=== PATIENT | male | born 1985 | race Caucasian/White ===

== ENCOUNTER 2018-10-07 19:34 | Emergency (ER) | payer SELFPAY ==
[2018-10-07 19:40] VITALS: BP 139/76; PULSE 82; RESP 16; TEMP 36.3; O2SAT 98
--- NOTE | 2018-10-07 20:26 | ED.GENADUL_ITS ---
Discharge Plan Disposition Patient Disposition: HOME Condition: Improving Discharge Details Chief Complaint: Laceration Clinical Impression: Laceration of finger of left hand Primary Care Provider: None,None ED Provider: Jason Lema Home Meds and New Rx's Prescriptions: No Action No Known Home Meds RF: 0 Discharge Instructions Instructions: Finger Laceration (ED) Additional Instructions: Please watch for any signs of infection and return immediately if these occur. Otherwise keep wound clean and dry, keep initial dressing on for the first 24-48 hours, and then you may use mild soap and water to clean wound. You may use [id number] pain meds as needed for discomfort. Referrals: [facility] Emergency Dept. [Outside] (Return to emergency department in 10-12 days for suture removal) Medical Decision Making Patient presenting to the emergency department for chief complaint of left ring finger laceration patient states that he was attempting to change the brakes in his car when his hand slipped and was smashed against a part of the car. Patient suffered laceration to the left ring finger. Patient denies any other injury or trauma. Patient does state mild numbness around the wound itself but patient has full movement and no tendon deficiency and normal cap refill along with two-point discrimination of the finger. Patient gave consent for wound closure. Please see in procedure note for wound closure. Return precautions discussed. After discussion of diagnosis and plan of care patient has no further needs, questions, or concerns and states clear understanding to return to the emergency department for any worsening symptoms. Tetanus status was unable to be verified so patient was in agreement with receiving tetanus at today's visit. Tdap ordered. HPI General Mode of arrival: ambulatory . Date/Time Provider Initiated Documentation: 10/07/18 19:36 . Limitations to Documentation: no limitations . Information obtained by: patient and RN notes reviewed . History of Present Illness 33 year old M presents to the emergency department with the chief complaint of Left index finger lacerate, described as mild, with intensity rated at 5. Quality is described as sharp, and is localized to the left and upper extremity. Patient started experiencing this hour(s) (2) and it has been constant. Patient notes no other symptoms.. Patient did receive the following treatments prior to arrival, none Related Data Home Medications Medication Instructions Recorded Confirmed Unknown [No Known Home Meds] 09/27/14 10/07/18 Allergies Allergy/AdvReac Type Severity Reaction Status Date / Time Sulfa (Sulfonamide Allergy Unknown Unverified 10/07/18 19:45 Antibiotics) bees Allergy Unknown Uncoded 10/07/18 19:45 General Stated Complaint: Laceration ANITA: 4 Review of Systems Cardiovascular Denies syncope and Denies lightheadedness Musculoskeletal Denies deformity, Denies limited range of motion and Reports numbness Integumentary/Breasts Reports as per HPI Neurologic Denies syncope, Reports numbness and Denies paresthesias PFS Social History Smoking and Tabacco status: Former Tobacco Use Exam Const General: cooperative and no acute distress Orientation: alert, awake and oriented x3 Limitations: mental status not altered Resp Effort & Inspection: normal respiratory effort and able to speak in complete sentences Cardio Rate: regular rate Rhythm: regular rhythm Neuro General: alert, awake, oriented x3, gait normal, normal light touch, pain and propioception and no focal motor deficits Extrem Left upper extremity: hand Details: neuromotor exam normal, neurosensory exam normal (Two-point discrimination also normal), tendon exam normal, tenderness Location: of the 4th digit Location: at the distal phalanx and on the palmar aspect, vascular exam Details: radial pulse present and normal capillary refill, normal ROM of fingers and laceration (Left ring finger palmar aspect distal phalanx 2cm) Course Vital Signs Temperature 36.3 C L 10/07/18 19:40 Pulse 82 10/07/18 19:40 Respiratory Rate 16 10/07/18 19:40 Blood Pressure 139/76 10/07/18 19:40 Pulse Oximetry 98 10/07/18 19:40 Temperature 36.3 C L 10/07/18 19:40 Temperature Source Temporal Artery Scan 10/07/18 19:40 Pulse 82 10/07/18 19:40 Respiratory Rate 16 10/07/18 19:40 Respiratory Effort Non-Labored 10/07/18 19:47 Blood Pressure 139/76 10/07/18 19:40 Blood Pressure Position Sitting 10/07/18 19:40 Pulse Oximetry 98 10/07/18 19:40 Oxygen Delivery Method Room Air 10/07/18 19:40 Oxygen Flow Rate 0 10/07/18 19:40 Pain Level 5 10/07/18 19:40 Procedures Laceration Laceration 1: Site: hand (index finger) Side (If applicable): left Size (cm): 2 Description: linear Depth: simple, single layer Local Anesthetic: Lidocaine 2% Amount of anesthesia used (mL): 3 Pre-repair: wound explored, irrigated extensively and deep structures intact Skin layer closed with: nylon Size (cm): 4-0 Number of sutures: 4 Technique: simple, interrupted
[2018-10-07 21:14] VITALS: BP 139/76; PULSE 82; RESP 16; TEMP 36.3; O2SAT 98
== END 2018-10-07 21:15 | disposition home or self-care (01) ==
PROVIDERS: Emergency Provider Nurse Practitioner Family
DX: S61.215A Laceration without foreign body of left ring finger without damage to nail, initial encounter (principal); W26.8XXA Contact with other sharp object(s), not elsewhere classified, initial encounter
CPT/HCPCS: 12001; 90471

== ENCOUNTER 2019-02-27 08:06 | Emergency (ER) | payer SELFPAY ==
[2019-02-27 08:15] VITALS: BP 112/78; PULSE 83; RESP 16; TEMP 36.8; O2SAT 99
--- NOTE | 2019-02-27 08:26 | ED.GENADUL_ITS ---
Discharge Plan Disposition Patient Disposition: HOME Discharge Details Chief Complaint: Sorethroat Clinical Impression: Strep pharyngitis Primary Care Provider: None,None ED Provider: Sam Siegel Home Meds and New Rx's Prescriptions: New penicillin V potassium 500 mg tablet 500 mg PO BID 10 Days Qty: 20 RF: 0 Discharge Instructions Instructions: Strep Throat (ED) Additional Instructions: Take Aleve 2 pills in the morning and 2 pills at night for discomfort. You can also supplement with Tylenol 500 mg 2 tabs every 8 hours for pain. Take antibiotics for the full course. Return should you develop vomiting. Medical Decision Making This is a nontoxic-appearing 33-year-old male who presents to the emergency department with symptoms of sore throat and subjective fever. Vitals stable here. He is strep positive. No penicillin allergy. Will discharge with penicillin 500 mg twice daily x10 days. Return precautions discussed HPI General Date/Time Provider Initiated Documentation: 02/27/19 08:10 . HPI Narrative: Patient is a 33-year-old male with no significant past medical history who presents to the emergency department with 2 days of sore throat and fever. She denies any other symptoms. Patient has been supplementing Aleve and Meera- [place] for pain and fever. No abdominal pain or vomiting Related Data Home Medications Medication Instructions Recorded Confirmed penicillin V potassium 500 mg PO BID 10 Days #20 tab 02/27/19 Previous Rx's Medication Instructions Recorded penicillin V potassium 500 mg PO BID 10 Days #20 tab 02/27/19 Allergies Allergy/AdvReac Type Severity Reaction Status Date / Time Sulfa (Sulfonamide Allergy Unknown Unverified 02/27/19 08:25 Antibiotics) bees Allergy Unknown Uncoded 02/27/19 08:25 General Stated Complaint: Sorethroat ANITA: 4 Review of Systems Constitutional Denies body ache(s), Denies chills, Denies fever(s), Denies headache(s), Denies lethargy, Denies malaise, Denies night sweats and Denies weakness ENT Denies facial pain, Denies headache(s), Denies hoarseness, Denies neck mass, Denies neck pain, Denies sinus pain, Reports sore throat, Denies throat swelling and Denies tongue swelling Respiratory Denies cough Gastrointestinal Denies diarrhea, Denies nausea and Denies vomiting Musculoskeletal Denies arthralgias, Denies muscle cramps, Denies muscle weakness and Denies neck pain Integumentary/Breasts Denies rash Neurologic Denies headache(s) and Denies weakness Allergic/Immunologic Denies throat swelling and Denies tongue swelling [facility] Social History Smoking/Tobacco Use Status: Former Tobacco Use Alcohol Intake: current Alcohol Intake frequency: 3 or more drinks per day Alcohol type: beer Drug use: Occasionally Substance use type: marijuana Do you feel safe at home: Yes Do you feel safe in your relationship?: Yes Exam Const General: cooperative, healthy appearing and comfortable Orientation: alert, awake and oriented x3 HENMT Mouth: oral mucosae normal, lip normal and tongue normal Teeth and gingiva: dentition normal Throat: posterior oropharynx abnormal erythema; no edema and no exudates Neck Neck: normal visual inspection Lymphatic: lymphadenopathy Chest Chest: normal inspection of the chest Resp Effort & Inspection: normal respiratory effort and able to speak in complete sentences Skin General skin exam: no rashes or lesions noted Course Vital Signs Temperature 36.8 C 02/27/19 08:15 Pulse 83 02/27/19 08:15 Respiratory Rate 16 02/27/19 08:15 Blood Pressure 112/78 02/27/19 08:15 Pulse Oximetry 99 02/27/19 08:15 Temperature 36.8 C 02/27/19 08:15 Temperature Source Temporal Artery Scan 02/27/19 08:15 Pulse 83 02/27/19 08:15 Respiratory Rate 16 02/27/19 08:15 Respiratory Effort Non-Labored 02/27/19 08:20 Blood Pressure 112/78 02/27/19 08:15 Blood Pressure Position Sitting 02/27/19 08:15 Pulse Oximetry 99 02/27/19 08:15 Oxygen Delivery Method Room Air 02/27/19 08:15 Oxygen Flow Rate 0 02/27/19 08:15 Pain Level 10 02/27/19 08:15 Lab/Test Results Lab/Test Results: POC Strep Test-CARLOS(Rapid) Start: 02/27/19 08:13 Freq: .Rapid Strep Test Status: Active Protocol: Document 02/27/19 08:20 SGL (Rec: 02/27/19 08:20 SGL [id number]) Strep test-CARLOS(Rapid)-POC POC-Strep test-CARLOS (Rapid) Positive POC-Strep test-CARLOS (Rapid) Positive
[2019-02-27 08:41] VITALS: BP 112/78; PULSE 83; RESP 16; TEMP 36.8; O2SAT 99
== END 2019-02-27 08:43 | disposition home or self-care (01) ==
PROVIDERS: Emergency Provider Physician Assistant
DX: J02.0 Streptococcal pharyngitis (principal)
CPT/HCPCS: 87880; 99283

== ENCOUNTER 2023-04-20 18:04 | Emergency (ER) | payer SELFPAY ==
[2023-04-20 18:06] VITALS: BP 124/84; PULSE 96; RESP 16; TEMP 36.6; O2SAT 98
--- NOTE | 2023-04-20 18:30 | DI.RAD_ITS ---
Exam(s) XR KNEE RT 3V AP,LAT,RYLEE EXAM: XR KNEE RT 3V AP,LAT,RYLEE CLINICAL HISTORY: Puncture wound with nail. TECHNIQUE: 2D digital imaging was performed. COMPARISON: No exams were available for comparison FINDINGS: 3 views No evidence of fracture nor prominent joint effusion. No degenerative changes. Bone density normal. No osseous lesions. IMPRESSION: No acute osseous findings in the knee. DATA REPOSITORY: RADIATION DOSE DELIVERED:
--- NOTE | 2023-04-20 19:00 | DI.RAD_ITS ---
Exam(s) XR FEMUR RT EXAM: XR FEMUR RT CLINICAL HISTORY: Puncture wound. TECHNIQUE: 2D digital imaging was performed. COMPARISON: No exams were available for comparison FINDINGS: Two views: No evidence of femur nor hip fracture. Bone density normal. No osseous lesions. There is apparentl y a history of puncture wound. No radiopaque foreign body seen and no gas within soft tissues. IMPRESSION: No acute osseous findings in femur. DATA REPOSITORY: RADIATION DOSE DELIVERED:
[2023-04-20] MEDS: Ibuprofen 600 MG TAB PO (19:23)
--- NOTE | 2023-04-20 19:30 | ED.GENADUL_ITS ---
Discharge Plan Disposition Patient Disposition: Home Condition: Good Discharge Details Clinical Impression: Puncture wound of right thigh without foreign body Primary Care Provider: None,None ED Provider: Toya Durán Home Meds and New Rx's Prescriptions: New cephalexin 500 mg capsule 500 mg PO QID Qty: 28 0RF Rx Instructions: We recommend you take a probiotic while on antibiotics. Discharge Instructions Instructions: Puncture Wound (ED) Additional Instructions: 1. Take cephalexin 500 mg every 6 hours for 7 days. We recommend you take a probiotic while on antibiotics. 2. Wash the wound with mild soap and water or diluted hydrogen peroxide and warm tap water to encourage drainage. 3. Alternate 4 to 600 mg of ibuprofen every 3 hours with 1000 mg of acetaminophen as needed for pain. 4. You should get a phone call from the orthopedic office with an appointment for recheck of the wound. 5. Return to the emergency department for any new or worrisome symptoms such as fever, chills, increased pain, red streaking or swollen glands in your groin, or if you develop pain numbness or discoloration of the foot. Discharge Data Discharge Physician: Toya Durán Medical Decision Making This is a 38-year-old male with an intact immune system who accidentally punctured his right thigh with a needle while trying to break wooden board over his knee. He does not have any evidence of compartment syndrome and does not have a foreign body sensation. My plan is to obtain plain films of the right knee and thigh to rule out cortical disruption. I have advised him to wash the wound with dilute hydrogen peroxide and warm tap water to encourage drainage. I have advised him to return if he develops any numbness tingling or weakness in the lower extremities which could suggest a compartment syndrome. I have adv ised him to follow-up with orthopedics and have asked to have the office contact him with a follow-up appointment for wound recheck. We will start him on cephalexin and I have advised him to buy a probiotic and to alternate acetaminophen every 3 hours with ibuprofen as needed for pain. His last tetanus booster was 4 years ago so he does not need an update. He did receive the ibuprofen prior to my evaluation. We will be discharging the patient home. He has declined a crutch. The patient and his family voiced understanding agree with the discharge plan. All their questions and concerns were addressed prior to discharge Differential Diagnosis Differential Diagnosis: Puncture wound to rule out bony penetration, rule out foreign body Medical Records Medical records reviewed: Yes I reviewed the patient's medical records. Medical records narrative: No significant past medical history Imaging Data Radiologic Study: Attestation: I personally reviewed and interpreted this imaging study as follows: Imaging: X-Ray (Right thigh) My impression: No retained foreign body. No fracture Radiologic Study #2: Attestation: I personally reviewed and interpreted this imaging study as follows: Imaging: X-Ray (Right knee) My impression: Soft tissue swelling. No evidence of cortical disruption or penetration of the joint. No retained foreign body. HPI General Date/Time Provider Initiated Documentation: 04/20/23 18:36 . Limitations to Documentation: no limitations . Information obtained by: patient, family, RN notes reviewed and old records reviewed . History of Present Illness described as moderate, and it has been constant. HPI Narrative: Time seen was 7:35 PM in bed 11. The patient is a healthy 38-year-old male who was attempting to break a wooden board over his right knee at approximately 5 PM today. After the board broke he noted there was a nail sticking out of the blue load which punctured the medial aspect of his right thigh. He is complaining of a throbbing pain which is 5 out of 10 in severity and associated with swelling. The pain is aggravated by flexion and extension of the knee as well as ambulation. He denies any additional injury. He denies any numbness or tingling. He states that the nail came out easily and he does not feel as though it penetrated the bone. The pain radiates slightly proximally and is described as soreness. The patient does get presyncopal which is likely vasovagal when he sees needles or has significant injuries. He states he was slightly dizzy after it happened and vomited once. He denies any abdominal pain. He has not had any diarrhea. His last tetanus shot was 4 years ago. He has an allergy to sulfa but is not allergic to penicillin. He has no history of immune compromise. Related Data Home Medications Medication Instructions Recorded Confirmed cephalexin 500 mg capsule 500 mg PO QID #28 caps 04/20/23 Previous Rx's Medication Instructions Recorded cephalexin 500 mg capsule 500 mg PO QID #28 caps 04/20/23 Allergies Allergy/AdvReac Type Severity Reaction Status Date / Time Sulfa (Sulfonamide Allergy Unknown Unverified 04/20/23 18:13 Antibiotics) bees Allergy Unknown Uncoded 04/20/23 18:13 General Stated Complaint: Trauma ANITA: 3 Review of Systems Narrative: see hpi All systems reviewed & are unremarkable except as noted in HPI and below Constitutional Constitutional: Reports as per HPI and Denies fever(s) Musculoskeletal Musculoskeletal: Reports system reviewed and no additional complaints, except as documented, Reports as per HPI, Reports abnormal gait, Denies numbness and Denies tingling Neurologic Neurologic: Reports abnormal gait, Denies numbness and Denies tingling Hematologic/Lymphatic Hematologic/Lymphatic: Reports as per HPI Comments: Patient not on therapeutic anticoagulants Allergic/Immunologic Comments: Allergy to sulfonamides PFSH All Active Problems (Updated 04/20/23 @ 19:57 by Toya Durán MD) Puncture wound of right thigh without foreign body (Acute) Social History Smoking/Tobacco Use Status: Former Tobacco Use Smoking risk assessment performed?: Yes Alcohol Intake: current Alcohol Intake frequency: 3 or more drinks per day Alcohol type: beer Drug use: Occasionally Substance use type: marijuana Do you feel safe at home: Yes Do you feel safe in your relationship?: Yes Exam Const General: cooperative, healthy appearing, comfortable, no acute distress, well developed, well groomed and well hydrated Nutritional Appearance: average body habitus and well nourished Orientation: alert, awake and oriented x3 Other: His vital signs are within normal limits [facility] Head: normal to inspection, normocephalic and atraumatic Ears: hearing grossly normal bilaterally and external ears normal General nose exam: external nose normal, nares normal and no nasal discharge Face and sinus: normal facial exam, sinuses nontender and face symmetric Mouth: oral mucosae normal, lip normal, tongue normal, oropharynx normal, moist mucous membranes and other (Normal phonation. The patient is handling secretions.) Eyes General: appearance normal, both eyes and all related structures Eyelids: eyelids normal Conjunctivae: conjunctivae normal Sclera: sclerae normal Cornea: corneas normal Pupils: PERRL EOM: EOM intact bilaterally and No nystagmus Neck Neck: normal visual inspection, full ROM, no lymphadenopathy, no meningeal signs, trachea midline and supple Lymphatic: no lymphadenopathy noted Resp Effort & Inspection: normal respiratory effort, able to speak in complete sentences, no audible wheezes, no nasal flaring, no respiratory distress, no retractions, no stridor, not tachypneic, no tracheal deviation, no use of accessory muscles, No prolonged expiratory phase and other (Normal inspiratory to expiratory ratio.) Auscultation: clear to auscultation bilaterally, no rales, no rhonchi and no wheezes Cardio Jugular venous pressure: no JVD Palpation: normal PMI Rate: regular rate Rhythm: regular rhythm Heart Sounds: S1 normal, S2 normal, no gallops, no murmurs and no rubs GI Inspection: normal to inspection and non-distended Palpation: soft, no hepatosplenomegaly, no guarding and nontender Percussion: normal to percussion Auscultation: normal bowel sounds Skin General skin exam: turgor normal, no petechiae, no purpura and other (Skin is normal for ethnicity.) Rashes: no rashes Other: There is a 3 mm puncture wound to the medial aspect of the right thigh just proximal to the knee joint. The right hip knee ankle and foot are nontender with full range of motion. There is mild swelling and tenderness around the puncture wound. There is no significant bleeding. Dorsalis pedis is intact. Popliteal artery is intact. There is no bony crepitus. There is no obvious foreign body. The remainder of his extremities are unremarkable. He has full range of motion of the right knee. There is no effusion or instability. Neuro General: patient alert, patient awake, patient oriented x3, moves all extremities, no meningeal signs, no focal motor deficits and CN's II-XI intact bilaterally Cranial Nerves: CN's II-XI intact bilaterally, PERRL, accommodation normal, EOM intact bilaterally, no nystagmus, facial strength normal, tongue midline, hearing normal and no nystagmus Cognition: normal cognition Speech: speech normal Gait: normal gait Motor: muscle tone normal throughout and strength 5/5 throughout Sensory Exam: no sensory deficits noted Extrem General: full ROM, capillary refill normal, normal exam except as noted, no clubbing, cyanosis or edema, no calf tenderness, abnormal gait and other (Please see above) Other: Puncture wound to the medial aspect of the right thigh approximately 5 cm proximal to the knee joint. Psych Appearance: grossly normal Affect: normal affect Attitude: cooperative Thought Process: normal Thought Content: normal Insight: insight good Judgment: judgment good Other: The patient appears to have capacity make medical decisions. Course The patient was advised on risk of infections from a puncture wound. He was advised to wash the wound with dilute hydrogen peroxide and warm tap water or mild soap and water in the shower. He was advised of signs and symptoms of compartment syndrome and advised to return if he developed any numbness tingling or discoloration of her toes or any fever, chills. Vital Signs Vital signs: Vital Signs Temperature 36.6 C 04/20/23 18:06 Pulse 96 H 04/20/23 18:06 Respiratory Rate 16 04/20/23 18:06 Blood Pressure 124/84 04/20/23 18:06 Pulse Oximetry 98 04/20/23 18:06 Temperature 36.6 C 04/20/23 18:06 Temperature Source Temporal Artery Scan 04/20/23 18:06 Pulse 96 H 04/20/23 18:06 Respiratory Rate 16 04/20/23 18:06 Respiratory Effort Normal 04/20/23 18:16 Respiratory Depth Normal 04/20/23 18:16 Respiratory Pattern Normal 04/20/23 18:16 Blood Pressure 124/84 04/20/23 18:06 Blood Pressure Position Sitting 04/20/23 18:06 Pulse Oximetry 98 04/20/23 18:06 Oxygen Delivery Method Room Air 04/20/23 18:06 Oxygen Flow Rate 0 04/20/23 18:06 Pain Level 3 04/20/23 18:16 PAWSS Have you Been Recently Intoxicated or Drunk Within the Last 30 days?: No Have you Ever Experienced Previous Episodes of Alcohol Withdrawal?: No Have you ever Experienced Withdrawal Seizures?: No Have you ever Experienced Delirium Tremens(DT)s?: No Have you ever undergone Alcohol Rehabilitation Treatment (i.e, inpt ot outpatient treatment programs)?: No Have you ever Experienced Blackouts?: No Have you ever Combined Alcohol with other Downers within the last 90 days?: No Have you ever Combined Alcohol with any other Substance of Abuse during the last 90 days?: No Result: 0
[2023-04-20] MEDS: Cephalexin 500 MG CAP PO (19:58)
--- NOTE | 2023-04-20 20:06 | DI.VRAD_ITS ---
PROCEDURE INFORMATION: Exam: XR Right Femur Exam date and time: 04/20/2023 7:29 PM Age: 38 years old Clinical indication: Injury or trauma; Other: Puncture wound, nail; Work related; Thigh or upper leg; Right; Without foreign body; Injury date: 04/20/23; Injury details: Puncture wound with nail TECHNIQUE: Imaging protocol: Radiologic exam of the right femur. Views: 2 views. COMPARISON: CR XR KNEE RT 3V AP,LAT,RYLEE 04/20/2023 6:56 PM FINDINGS: Bones/joints: Unremarkable. No acute fracture. Soft tissues: Unremarkable. IMPRESSION: No acute findings. Dictated and Authenticated by: Arben Montgomery MD. Ordering:AMPARO Saleem MD
== END 2023-04-20 20:06 | disposition home or self-care (01) ==
PROVIDERS: Emergency Provider Emergency Medicine Emergency Medical Services
DX: S71.131A Puncture wound without foreign body, right thigh, initial encounter (principal); Z87.891 Personal history of nicotine dependence; W45.0XXA Nail entering through skin, initial encounter; Y93.89 Activity, other specified; Y99.9 Unspecified external cause status
CPT/HCPCS: 73552; 73562; 99283; 99282

== ENCOUNTER 2023-10-05 08:09 | Emergency (ER) | payer SELFPAY ==
[2023-10-05 08:13] VITALS: BP 128/74; PULSE 67; RESP 18; TEMP 36.8; O2SAT 99
--- NOTE | 2023-10-05 08:15 | DI.RAD_ITS ---
Exam(s) XR SHOULDER RT COMPLETE 2+V EXAM: XR SHOULDER RT COMPLETE 2+V CLINICAL HISTORY: trauma, pain. TECHNIQUE: 2D digital imaging was performed. Five views. COMPARISON: No exams were available for comparison FINDINGS: BONES: No acute fracture is present. No bony destructive lesion is seen. JOINTS: No dislocation present. Mild degenerative changes at the glenoid. SOFT TISSUE: Normal. IMPRESSION: No acute abnormality DATA REPOSITORY: RADIATION DOSE DELIVERED:
--- NOTE | 2023-10-05 08:19 | ED.GENADUL_ITS ---
Discharge Plan Disposition Patient Disposition: Home Condition: Stable Discharge Details Clinical Impression: Sprain of right shoulder Primary Care Provider: Unknown,Unknown ED Provider: Shelly Gutierrez Home Meds and New Rx's Prescriptions: No Action No Known Home Meds Discharge Instructions Instructions: Shoulder Sprain (ED) Additional Instructions: ice to affected area for 24 to 48 hours then you can use heat or ice. use ibuprofen 600 mg 4 times daily with food for 5 days, then as needed for pain can add acetaminophen 650 mg in between for breakthrough pain gentle shoulder exercises as instructed. Referrals: Unknown,Unknown [Primary Care Provider] - (if not improving in 5-7 days.) HPI General Mode of arrival: ambulatory . Date/Time Provider Initiated Documentation: 10/05/23 08:17 . Limitations to Documentation: no limitations . Information obtained by: patient . HPI Narrative: patient is isolated right shoulder injury after falling out of his bed last night. reports he was able to fully range his shoulder after the injury but this morning reports that he has limited range of motion secondary to the pain. He has not taken any [id number] pain medication for his symptoms. He denies any head injury or loss of consciousness. He has had no visual disturbance nausea or vomiting. He denies any numbness or tingling distally. Related Data Home Medications Medication Instructions Recorded Confirmed Unknown [No Known Home Meds] 10/05/23 10/05/23 Allergies Allergy/AdvReac Type Severity Reaction Status Date / Time Sulfa (Sulfonamide Allergy Unknown Other (See Unverified 10/05/23 08:17 Antibiotics) Comment) bees Allergy Unknown Other (See Uncoded 10/05/23 08:17 Comment) General Stated Complaint: Orthopedic ANITA: 3 Review of Systems All systems reviewed & are unremarkable except as noted in HPI and below Exam Const General: cooperative, healthy appearing, comfortable and no acute distress Nutritional Appearance: average body habitus Orientation: alert, awake and oriented x3 HENMT Head: normal to inspection, normocephalic and atraumatic Mouth: oral mucosae normal Neck Neck: normal visual inspection, full ROM and nontender Chest Chest: normal inspection of the chest, no crepitus and no tenderness Resp Effort & Inspection: normal respiratory effort Cardio Rate: regular rate Rhythm: regular rhythm and other (regular radial pulse, strong) GI Inspection: normal to inspection Skin General skin exam: no rashes or lesions noted and no ecchymosis Neuro General: patient alert, patient awake, patient oriented x3 and no focal motor deficits Cognition: normal cognition Speech: speech normal Course Vital Signs Vital signs: Vital Signs Temperature 36.8 C 10/05/23 08:13 Pulse 67 10/05/23 08:13 Respiratory Rate 18 10/05/23 08:13 Blood Pressure 128/74 10/05/23 08:13 Pulse Oximetry 99 10/05/23 08:13 Temperature 36.8 C 10/05/23 08:13 Temperature Source Temporal Artery Scan 10/05/23 08:13 Pulse 67 10/05/23 08:13 Respiratory Rate 18 10/05/23 08:13 Blood Pressure 128/74 10/05/23 08:13 Blood Pressure Position Sitting 10/05/23 08:13 Pulse Oximetry 99 10/05/23 08:13 Oxygen Delivery Method Room Air 10/05/23 08:13 Oxygen Flow Rate 0 10/05/23 08:13 Medical Decision Making isolated right shoulder injury, will image to evaluate for osseous deformity or fracture. ice bag applied. Given ibuprofen 600 mg orally xray reviewed and no fracture or dislocation.. stable to discharge home with no services, follow up prn Imaging Data Radiologic Study: Imaging: X-Ray (right shoulder complete) Radiologist's impression: Exam(s) XR SHOULDER RT COMPLETE 2+V EXAM: XR SHOULDER RT COMPLETE 2+V CLINICAL HISTORY: trauma, pain. TECHNIQUE: 2D digital imaging was performed. Five views. COMPARISON: No exams were available for comparison FINDINGS: BONES: No acute fracture is present. No bony destructive lesion is seen. JOINTS: No dislocation present. Mild degenerative changes at the glenoid. SOFT TISSUE: Normal. IMPRESSION: No acute abnormality Quality:SDOH Health Related Social Needs: No Data to Display PFSH All Active Problems (Updated 10/05/23 @ 09:20 by Shelly Gutierrez NP) Sprain of right shoulder (Acute) Social History Smoking/Tobacco Use Status: Current every day Tobacco Type: cigarettes Smoking risk assessment performed?: Yes Alcohol Intake: current Alcohol Intake frequency: 3 or more drinks per day Alcohol type: beer Drug use: Daily Substance use type: marijuana Do you feel safe at home: Yes Do you feel safe in your relationship?: Yes
[2023-10-05] MEDS: Ibuprofen 600 MG TAB PO (08:28)
[2023-10-05 08:32] VITALS: BP 144/95; PULSE 89; RESP 20; TEMP 36.6; O2SAT 99
[2023-10-05 09:28] VITALS: BP 138/68; PULSE 82; RESP 20; TEMP 36.6; O2SAT 99
== END 2023-10-05 09:29 | disposition home or self-care (01) ==
PROVIDERS: Emergency Provider Nurse Practitioner Acute Care
DX: M25.511 Pain in right shoulder (principal); S43.401A Unspecified sprain of right shoulder joint, initial encounter; W06.XXXA Fall from bed, initial encounter
CPT/HCPCS: 99283; 73030